=== PATIENT | male | born 1980 | race Caucasian/White ===

== ENCOUNTER 2018-03-12 16:09 | Emergency (ER) | payer SELFPAY ==
[~2018-03-12] VITALS: Ht 177.8 cm; Wt 98.0 kg
[~2018-03-12 16:09] MED LIST: ASPI81CT89 PO; BENZ-196 PO
[2018-03-12 16:11] VITALS: BP 126/74
[2018-03-12] MEDS: KETOROLAC 60 MG/2 ML VIAL IM ONE (17:09)
[2018-03-12 17:41] VITALS: BP 126/74
== END 2018-03-12 17:41 | disposition home or self-care (01) ==
LOC: MED 16:09
DX: S30.0XXA Contusion of lower back and pelvis, initial encounter (principal); Z79.899 Other long term (current) drug therapy; W19.XXXA Unspecified fall, initial encounter; Y93.89 Activity, other specified; Y92.89 Other specified places as the place of occurrence of the external cause; Y99.8 Other external cause status
CPT/HCPCS: 72220; 96372; 99284; J1885

== ENCOUNTER 2018-12-11 23:42 | Emergency (ER) | payer OTHER ==
[~2018-12-11] VITALS: Ht 177.8 cm; Wt 90.7 kg
[2018-12-12 00:10] VITALS: BP 119/75
--- NOTE | 2018-12-12 00:13 | NUR ---
TO LOBBY A/W BED, ROQUE CEJA NOTED
--- NOTE | 2018-12-12 00:23 | NUR ---
PT AMBULATED TO BED12
--- NOTE | 2018-12-12 00:25 | NUR ---
PT PRESENTED TO ED WITH C/O PAIN TO LEFT THUMB, S/P SUTURE REMOVAL ON 12/01/18. THUMB APPEARS TO BE RED AND SWOLLEN. PT STATES PAIN IS 4/10 AND SUTURE LINE HAS REOPENED. NO ACTIVE BLEEDING AT THIS TIME.
[2018-12-12] MEDS ORDERED: BACITRACIN OINT 500 UNITS/GM PKT TP ONE (01:00)
[2018-12-12 02:05] VITALS: BP 113/70
--- NOTE | 2018-12-12 02:05 | NUR ---
Patient discharged with v/s stable. Written and verbal after care instructions given and explained. Patient alert, oriented and verbalized understanding of instructions. Ambulatory with steady gait. All questions addressed prior to discharge. ID band removed. Patient advised to follow up with PMD. Rx of BACTRIM, KEFLEX, MUPIROCIN given. Patient educated on indication of medication including possible reaction and side effects. Opportunity to ask questions provided and answered.
== END 2018-12-12 02:05 | disposition home or self-care (01) ==
LOC: MED 23:42
DX: S61.002A Unspecified open wound of left thumb without damage to nail, initial encounter (principal); Z79.82 Long term (current) use of aspirin; Z79.899 Other long term (current) drug therapy; X58.XXXA Exposure to other specified factors, initial encounter; Y93.89 Activity, other specified; Y92.89 Other specified places as the place of occurrence of the external cause; Y99.8 Other external cause status
CPT/HCPCS: 99283

== ENCOUNTER 2019-10-14 16:26 | Emergency (ER) | payer OTHER ==
[~2019-10-14] VITALS: Ht 177.8 cm; Wt 93.4 kg
[~2019-10-14 16:26] MED LIST changes: +ASPI-1718 PO; -ASPI81CT89 PO
[2019-10-14 16:40] VITALS: BP 131/70
--- NOTE | 2019-10-14 16:49 | NUR ---
PT AMBULATED TO BED 8.
[2019-10-14] MEDS ORDERED: KETOROLAC 30 MG/ML VIAL IM ONE ×2 (17:05)
--- NOTE | 2019-10-14 17:19 | NUR ---
X RAY AT BEDSIDE.
--- NOTE | 2019-10-14 17:19 | NUR ---
PT BIB TO THE ED WITH THE C/O LEFT ANKLE/FOOT PAIN X 1 DAY. PT STATES HE WAS DOING YEARD WORK BUT UNSURE IF INJURY OCCURED. PT STATES PAIN IS SHARP AND RATES PAIN 7/10 AT THIS TIME. SWELLING AND REDNESS NOTED TO LEFT ANKLE. +CMS. PT REPORTS TAKING IBUPROFEN AT 1130 TODAY. SKIN IS WARM, PINK, AND DRY. PT PRESENTS WITH A CLEAR SPEECH AND IS CONVERSING APPROPRIATELT. AT BEDSIDE. PT POSITIONED FOR COMFORT, HOB ELEVATED. 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 PMH: NONE RX: NONE NKA
[2019-10-14 17:46] LABS: BASOPHILS # (AUTO) 0.1 K/uL (0.00-0.22); BASOPHILS % (AUTO) 0.7 % (0.0-2.0); EOSINOPHILS # (AUTO) 0.1 K/uL (0-0.4); EOSINOPHILS % (AUTO) 1.9 % (0.0-4.0); HEMATOCRIT 43.7 % (36-52); HEMOGLOBIN 15.1 g/dL (12.0-18.0); LYMPHOCYTES # (AUTO) 2.3 K/uL (2.0-11.5); LYMPHOCYTES % (AUTO) 30.1 % (20.5-51.1); MEAN CORPUSCULAR HEMOGLOBIN 33 pg (27-31); MEAN CORPUSCULAR HGB CONC 35 g/dL (33-37); MEAN CORPUSCULAR VOLUME 95.1 fL (80-94); MONOCYTES # (AUTO) 0.8 K/uL (0.8-1.0); MONOCYTES % (AUTO) 10.9 % (1.7-9.3); NEUTROPHILS # (AUTO) 4.3 K/uL (1.8-7.7); NEUTROPHILS % (AUTO) 56.4 % (42.2-75.2); PLATELET COUNT (AUTO) 206 K/uL (140-450); RED BLOOD CELL COUNT(AUTO) 4.59 MIL/uL (4.20-6.10); RED CELL DISTRIBUTION WIDTH 12.4 % (11.6-13.7); WHITE BLOOD COUNT (AUTO) 7.6 K/uL (4.8-10.8)
--- NOTE | 2019-10-14 17:50 | NUR ---
PT RESTING AT BEDSIDE SPEAKING WITH . WILL CONTINUE TO MONITOR.
[2019-10-14 18:07] LABS: ANION GAP 16.2 (8-16); CARBON DIOXIDE 25.5 mmol/L (21-32); POTASSIUM 3.7 mmol/L (3.5-5.1)
[2019-10-14 18:13] LABS: ALBUMIN 3.7 g/dL (3.4-5.0); TOTAL BILIRUBIN 0.7 mg/dL (0.0-1.0)
--- NOTE | 2019-10-14 19:17 | NUR ---
Pt report given to CHAI CAMPBELL. Transfer of care at this time.
--- NOTE | 2019-10-14 19:18 | NUR ---
KATHERINE WRAP AND CRUTCHES APPLIED TO LEFT ANKLE
[2019-10-14 20:26] VITALS: BP 128/77
== END 2019-10-14 20:26 | disposition home or self-care (01) ==
LOC: MED 16:26
DX: M10.9 Gout, unspecified (principal); Z79.899 Other long term (current) drug therapy; Z79.82 Long term (current) use of aspirin
CPT/HCPCS: 36415; 73610; 80053; 85025; 85379; 85651; 96372; 99284; J1885; Q0092